=== PATIENT | female | born 1960 | race Hispanic/Latino ===

== ENCOUNTER 2024-10-10 09:35 | Emergency (ER) | payer BC ==
[~2024-10-10] VITALS: Ht 149.9 cm; Wt 80.7 kg
[2024-10-10 09:54] VITALS: TEMP 98.1
[2024-10-10] MEDS ORDERED: SODIUM CHLORIDE FLUSH 10 ML SYR IV PRN (10:00)
[2024-10-10] MEDS ORDERED: PANTOPRAZOLE SO40 MG PO (10:04)
[2024-10-10] MEDS ORDERED: AMLODIPINE BESYL5 MG PO (10:04)
[2024-10-10] MEDS ORDERED: B-121000 MC2 PO (10:04)
[2024-10-10] MEDS ORDERED: COREG6.25 MG PO (10:04)
[2024-10-10] MEDS ORDERED: NAPROSYN500 MG PO (10:04)
[2024-10-10] MEDS ORDERED: FISH OIL 1,0001 EAC7 PO (10:04)
[2024-10-10] MEDS ORDERED: PLAQUENIL200 MG PO (10:04)
[2024-10-10] MEDS ORDERED: LEVOCETIRIZINE D5 MG PO (10:04)
[2024-10-10] MEDS ORDERED: TRIPLE OMEGA C400 MG PO (10:04)
[2024-10-10 10:23] LABS: BASOPHILS % 0.4 % (0.0-1.0); EOSINOPHILS % 3.1 % (0.0-6.0); LYMPHOCYTES % 28.5 % (18.0-39.1); MONOCYTES % 9.3 % (4.4-11.3); NEUTROPHILS % 58.5 % (38.7-80.0); RED CELL DISTRIBUTION WIDTH 13.5 % (11.7-14.4)
[2024-10-10 10:40] LABS: EST GLOMERULAR FILTRATION RATE 87.0 ML/MIN (>=60)
[2024-10-10 13:37] VITALS: PULSE 68; RESP 18; O2SAT 100
== END 2024-10-10 14:38 | disposition home or self-care (01) ==
LOC: ER 09:37
DX: R07.89 Other chest pain (principal); I10 Essential (primary) hypertension; K21.9 Gastro-esophageal reflux disease without esophagitis; M06.9 Rheumatoid arthritis, unspecified
CPT/HCPCS: 36415; 71046; 80053; 83880; 84484; 85025; 93005; 94760; 99283